=== PATIENT | male | born 1950 | race Asian ===

== ENCOUNTER → 2017-03-30 | Outpatient (CLI) | payer MEDICARE ==
[~2017-03-30] MED LIST: ACET-1757 PO; AMLO10TA2 PO; CHOL500015 PO; IBUP-1221 PO; NAPR220C2 PO
[2017-03-30 09:42] LABS: HEMATOCRIT 49.9 % (39.2-51.8); HEMOGLOBIN 17.3 g/dL (13.7-18.0); WHITE BLOOD COUNT 11.8 x10^3/uL (3.4-10)
[2017-03-30 09:53] LABS: BLOOD UREA NITROGEN 15 mg/dL (7-18)
[2017-03-30 10:18] LABS: DIFF TOTAL CELLS COUNTED 100 CELL DIFF
[2017-03-30 10:20] LABS: VERIFY COUNTS? YES
== END | disposition home or self-care (01) ==
LOC: STAR 08:35
PROVIDERS: ATTEND Neurological Surgery
DX: Z01.818 Encounter for other preprocedural examination (principal); R94.31 Abnormal electrocardiogram [ECG] [EKG]; M51.36 Other intervertebral disc degeneration, lumbar region; I44.7 Left bundle-branch block, unspecified; R79.1 Abnormal coagulation profile
CPT/HCPCS: 36415; 71020; 80048; 81003; 85025; 85610; 85730; 93005

== ENCOUNTER 2017-04-08 05:23 | Day surgery (SDC) | payer MEDICARE ==
[2017-03-30 09:05] VITALS: BP 126/82
[~2017-04-08] VITALS: Ht 172.7 cm; Wt 85.7 kg
[2017-04-08] MEDS ORDERED: LACTATED RINGERS 1,000 ML IV SCH (05:58)
[2017-04-08] MEDS ORDERED: BUPIVACAINE/PF 0.5% ONE ×2 (05:59→06:54)
[2017-04-08 06:00] VITALS: BP 126/82
[2017-04-08] MEDS ORDERED: LOSARTAN PO (06:00)
[2017-04-08] MEDS ORDERED: EPINEPHRINE 1 MG/ML, 1ML ONE (06:00)
[2017-04-08] MEDS ORDERED: LIDOCAINE 1%, 2ML SQ PRN (06:00)
[2017-04-08] MEDS ORDERED: BACITRACIN 50,000 UNIT ONE (06:00)
[2017-04-08] MEDS ORDERED: THROMBIN 5,000 UNIT VIAL TP ONE (06:00)
[2017-04-08] MEDS ORDERED: FENTANYL PF 100 MCG/2ML ONE (06:40)
[2017-04-08] MEDS ORDERED: MIDAZOLAM 1 MG/ML, 2ML ONE (06:40)
[2017-04-08] MEDS ORDERED: VANCOMYCIN 1,000 MG ONE (06:54)
[2017-04-08] MEDS ORDERED: NEOSTIGMINE 1 MG/ML, 10ML ONE (07:01)
[2017-04-08] MEDS ORDERED: ONDANSETRON 2MG/ML, 2ML ONE (07:01)
[2017-04-08] MEDS ORDERED: SUCCINYLCHOLINE 20 MG/ML, 10ML ONE (07:01)
[2017-04-08] MEDS ORDERED: ROCURONIUM 10 MG/ML ONE (07:01)
[2017-04-08] MEDS ORDERED: PROPOFOL 10 MG/ML, 20ML ONE (07:01)
[2017-04-08] MEDS ORDERED: GLYCOPYRROLATE 0.2MG/1ML, 5ML ONE (07:01)
[2017-04-08] MEDS ORDERED: DEXAMETHASONE 4 MG/ML, 1ML ONE (07:01)
[2017-04-08] MEDS ORDERED: CEFAZOLIN 1,000 MG ONE (07:01)
[2017-04-08] MEDS ORDERED: EPHEDRINE 50 MG/ML, 1ML ONE (07:09)
[2017-04-08] MEDS ORDERED: OXYcodone 5 MG/5 ML ORAL.SOL UDC PO PRN (08:00)
[2017-04-08] MEDS ORDERED: ACETAMINOPHEN 325 MG TABLET PO PRN (08:00)
[2017-04-08] MEDS ORDERED: ONDANSETRON 2MG/ML, 2ML IVPush PRN (08:00)
[2017-04-08] MEDS ORDERED: ALBUTEROL SULFATE 2.5 MG/3 ML NPPB PRN (08:00)
[2017-04-08] MEDS ORDERED: METOPROLOL 1 MG/ML, 5ML IV PRN (08:00)
[2017-04-08] MEDS ORDERED: PROMETHAZINE 25 MG/ML, 1ML IV PRN (08:00)
[2017-04-08] MEDS ORDERED: FENTANYL PF 100 MCG/2ML IV PRN (08:00)
[2017-04-08] MEDS ORDERED: MIDAZOLAM 1 MG/ML, 2ML IV PRN (08:00)
[2017-04-08] MEDS ORDERED: HYDROmorphone 1 MG/ML, 1ML IV PRN (08:00)
[2017-04-08] MEDS ORDERED: HYDROcodone/APAP 7.5-325MG/15ML UDC PO PRN (08:00)
[2017-04-08] MEDS ORDERED: MEPERIDINE/PF 25MG/0.5ML IVPush PRN (08:00)
[2017-04-08] MEDS ORDERED: EPHEDRINE 50 MG/ML, 1ML IVPush PRN (08:00)
[2017-04-08] MEDS ORDERED: hydrALAzine 20 MG/ML, 1ML IV PRN (08:00)
[2017-04-08] MEDS ORDERED: LABETALOL 5MG/ML, 20ML IV PRN (08:00)
[2017-04-08] MEDS ORDERED: DIAZEPAM 5 MG/ML, 2ML IVPush PRN (08:00)
[2017-04-08] MEDS ORDERED: HYDROmorphone 1 MG/ML, 1ML ONE (08:54)
[2017-04-08] MEDS ORDERED: ACETAMINOPHEN 650 MG/20.3 ML UDC ONE (09:52)
[2017-04-08] MEDS ORDERED: OXYcodone 5 MG/5 ML ORAL.SOL UDC ONE (09:52)
[2017-04-08] MEDS ORDERED: HYDROcodone/APAP 5/325 TABLET ONE (13:52)
[2017-04-08] MEDS ORDERED: HYDROcodone/APAP 5/325 TABLET PO ONE (14:00)
== END 2017-04-08 14:05 ==
LOC: OUT 05:23
PROVIDERS: ATTEND Neurological Surgery
DX: M48.061 Spinal stenosis, lumbar region without neurogenic claudication (principal); M51.16 Intervertebral disc disorders with radiculopathy, lumbar region; I10 Essential (primary) hypertension; E11.9 Type 2 diabetes mellitus without complications; M43.16 Spondylolisthesis, lumbar region
CPT/HCPCS: 63030; 63035; 63056; 63057; 72100; C1729; J0171; J0330; J0690; J1100; J1170; J2250; J2405; J2704; J2710; J3010; J3370; J3490; J7120

== ENCOUNTER → 2017-06-04 | Outpatient (CLI) | payer MEDICARE ==
[~2017-06-04] MED LIST changes: +LOSARTAN PO; +REGADENOSON 0.4 MG/5 ML SYRINGE ONE
== END | disposition home or self-care (01) ==
LOC: CFH 07:34
PROVIDERS: ATTEND Internal Medicine Cardiovascular Disease
DX: I25.89 Other forms of chronic ischemic heart disease (principal)
CPT/HCPCS: 78452; 93017; A9502; J2785

== ENCOUNTER 2017-07-22 09:03 | Day surgery (SDC) | payer MEDICARE ==
[2017-07-21 10:33] VITALS: BP 151/73
[2017-07-21 10:54] LABS: MEAN CORPUSCULAR HEMOGLOBIN 30.3 pg (27.5-34.5); MEAN CORPUSCULAR HGB CONC 34.1 g/dL (33.2-36.2); MEAN CORPUSCULAR VOLUME 88.7 fL (81-97); MEAN PLATELET VOLUME 9.2 fL (7.4-10.4); PLATELET COUNT 175 x10^3/uL (130-400); RED BLOOD COUNT 5.46 x10^6/uL (4.38-5.82); RED CELL DISTRIBUTION WIDTH 13.2 % (9.4-14.8)
[2017-07-21 11:01] LABS: INTERNATIONAL NORMALIZED RATIO 1.05 (0.93-1.1); PROTHROMBIN TIME 10.9 Seconds (9.6-11.5)
[2017-07-21 11:05] LABS: ANION GAP 7 mmol/L (5-15); CALCIUM 8.9 mg/dL (8.5-10.1); CHLORIDE 108 mmol/L (98-107); CREATININE 1.05 mg/dL (0.7-1.3)
[2017-07-21 11:16] LABS: MD YES
[2017-07-21 11:20] LABS: BASOS#(MANUAL) 0.12 x10^3/uL (0-0.1); BASOS% (MANUAL) 1 % (0-1); LYMPH#(MANUAL) 4.39 x10^3/uL (1-3.4); LYMPHS% (MANUAL) 36 % (22-44); MONOS#(MANUAL) 0.49 x10^3/uL (0.3-2.7); MONOS% (MANUAL) 4 % (2-9); REACTIVE LYMPHS # (MANUAL) 0.24 x10^3/uL (0-0); REACTIVE LYMPHS % (MANUAL) 2 % (0-0); SEG#(MANUAL) 6.95 x10^3/uL (1.8-6.8); SEGS% (MANUAL) 57 % (42-75); SMUDGE CELLS 1+
[2017-07-21 11:21] LABS: <PLATELET ESTIMATE> ADEQUATE; <PLT MORPHOLOGY> NORMAL PLT MORPH; <RBC MORPHOLOGY> NORMAL
[~2017-07-22] VITALS: Ht 172.7 cm; Wt 84.1 kg
[~2017-07-22 09:03] MED LIST changes: -REGADENOSON 0.4 MG/5 ML SYRINGE ONE
[2017-07-22] MEDS ORDERED: SODIUM CHLORIDE 0.9% 1,000 ML IV ONE (09:12)
[2017-07-22] MEDS ORDERED: DIPHENHYDRAMINE 50 MG/ML, 1ML IVPush PRN (09:30)
[2017-07-22] MEDS ORDERED: LIDOCAINE 2%, 20ML ONE (09:33)
[2017-07-22] MEDS ORDERED: MIDAZOLAM 1 MG/ML, 2ML ONE ×2 (09:33)
[2017-07-22] MEDS ORDERED: FENTANYL PF 100 MCG/2ML ONE (09:33)
[2017-07-22] MEDS ORDERED: HEPARIN 1,000 UNITS/ML, 10ML ONE (09:34)
[2017-07-22] MEDS ORDERED: VERAPAMIL 2.5 MG/ML, 2ML ONE (09:34)
[2017-07-22] MEDS ORDERED: HYDR-3237 PO (09:42)
[2017-07-22] MEDS ORDERED: ASPI-496 PO (09:42)
[2017-07-22] MEDS ORDERED: MULT-252 PO (09:42)
[2017-07-22] MEDS ORDERED: OMEG1CAP23 PO (09:42)
[2017-07-22] MEDS ORDERED: ASCO10004 PO (09:42)
[2017-07-22] MEDS ORDERED: LOSA1TAB19 PO (09:42)
[2017-07-22] MEDS ORDERED: METO25TA91 PO (09:42)
[2017-07-22] MEDS ORDERED: DIPH25CA61 PO (09:42)
[2017-07-22] MEDS ORDERED: SODIUM CHLORIDE 0.9% 1,000 ML IV SCH (11:40)
== END 2017-07-22 15:06 ==
LOC: CACL 09:03
PROVIDERS: ATTEND Internal Medicine Cardiovascular Disease
DX: I42.9 Cardiomyopathy, unspecified (principal); I34.0 Nonrheumatic mitral (valve) insufficiency; I10 Essential (primary) hypertension
CPT/HCPCS: 36415; 80048; 85025; 85610; 93458; 99156; 99157; C1894; J2250; J3010; J3490; Q9967; J1644

== ENCOUNTER 2017-10-24 20:00 | Emergency (ER) | payer MEDICARE ==
[~2017-10-24] VITALS: Ht 175.3 cm; Wt 85.0 kg
[~2017-10-24 20:00] MED LIST changes: +ASCO10004 PO; +ASPI-496 PO; +DIPH25CA61 PO; +HYDR-3237 PO; +LOSA1TAB19 PO; +METO25TA91 PO; +MULT-252 PO; +OMEG1CAP23 PO
[2017-10-24 22:18] VITALS: BP 127/81
[2017-10-24] MEDS ORDERED: OXYcodone/APAP 5/325MG TABLET ONE (22:27)
[2017-10-24] MEDS ORDERED: OXYcodone/APAP 5/325MG TABLET PO ONE (22:30)
[2017-10-24] MEDS ORDERED: METOPROLOL (22:56)
[2017-10-24] MEDS ORDERED: LOSARTAN (22:56)
[2017-10-24] MEDS ORDERED: PROPARACAINE OPHTH 0.5%, 15ML ONE (23:13)
[2017-10-24] MEDS ORDERED: BACITRACIN ZINC OINT 500U/GM, 0.9 GM ONE (23:27)
== END 2017-10-24 23:35 | disposition home or self-care (01) ==
LOC: ED 20:55
DX: S02.32XA Fracture of orbital floor, left side, initial encounter for closed fracture (principal); I10 Essential (primary) hypertension; H05.20 Unspecified exophthalmos; W01.0XXA Fall on same level from slipping, tripping and stumbling without subsequent striking against object, initial encounter; Y93.89 Activity, other specified; Y92.89 Other specified places as the place of occurrence of the external cause; Y99.8 Other external cause status
CPT/HCPCS: 70450; 70486; 72125; 99284

== ENCOUNTER → 2017-10-28 | Outpatient (CLI) | payer MEDICARE ==
[~2017-10-28] MED LIST changes: +LOSARTAN; +METOPROLOL
== END | disposition home or self-care (01) ==
LOC: RAD 09:08
PROVIDERS: ATTEND Orthopaedic Surgery
DX: S93.492A Sprain of other ligament of left ankle, initial encounter (principal); M25.472 Effusion, left ankle; X58.XXXA Exposure to other specified factors, initial encounter; Y93.89 Activity, other specified; Y92.89 Other specified places as the place of occurrence of the external cause; Y99.8 Other external cause status

== ENCOUNTER → 2018-01-19 | Outpatient (CLI) | payer MEDICARE | END | disposition home or self-care (01) | LOC: CVU 09:34 | PROVIDERS: ATTEND Internal Medicine Cardiovascular Disease | DX: I11.9 Hypertensive heart disease without heart failure (principal); I08.2 Rheumatic disorders of both aortic and tricuspid valves; I42.9 Cardiomyopathy, unspecified; I44.7 Left bundle-branch block, unspecified; I25.10 Atherosclerotic heart disease of native coronary artery without angina pectoris | CPT/HCPCS: 0399T; 93306 ==

== ENCOUNTER 2018-11-25 07:32 | Outpatient (CLI) | payer MEDICARE ==
[~2018-11-25 07:32] MED LIST changes: -AMLO10TA2 PO; +AMLO10TA8 PO
== END 2018-11-25 23:59 | disposition home or self-care (01) ==
LOC: CFH 07:32
PROVIDERS: ATTEND Internal Medicine Cardiovascular Disease
DX: I34.0 Nonrheumatic mitral (valve) insufficiency (principal); I11.9 Hypertensive heart disease without heart failure; Z87.891 Personal history of nicotine dependence
CPT/HCPCS: 93306

== ENCOUNTER 2021-03-01 09:27 | Outpatient (CLI) | payer MEDICARE ==
[~2021-03-01 09:27] MED LIST changes: -ACET-1757 PO; +ACET-2065 PO; +AMLO-211 PO; -AMLO10TA8 PO; +ASCO100018 PO; -ASCO10004 PO
[2021-03-01 09:46] LABS: MEAN CORPUSCULAR HEMOGLOBIN 31.3 pg (27.5-34.5); MEAN CORPUSCULAR HGB CONC 34.6 g/dL (33.2-36.2); MEAN PLATELET VOLUME 9.7 fL (7.4-10.4); PLATELET COUNT 127 x10^3/uL (130-400); RED BLOOD COUNT 4.94 x10^6/uL (4.38-5.82); RED CELL DISTRIBUTION WIDTH 13.2 % (9.4-14.8)
[2021-03-01 09:54] LABS: ALANINE AMINOTRANSFERASE 31 U/L (12-78); ANION GAP 8 mmol/L (5-15); CALCIUM 8.8 mg/dL (8.5-10.1); CHLORIDE 112 mmol/L (98-107); CREATININE 1.22 mg/dL (0.7-1.3)
[2021-03-01 09:56] LABS: ALKALINE PHOSPHATASE 51 U/L (45-117); BILIRUBIN,TOTAL 0.8 mg/dL (0.2-1.0); TOTAL PROTEIN 7.1 g/dL (6.4-8.2)
[2021-03-01 10:23] LABS: BASOS#(MANUAL) 0.15 x10^3/uL (0-0.1); BASOS% (MANUAL) 1 % (0-1); EOS#(MANUAL) 0.15 x10^3/uL (0.0-0.4); EOS% (MANUAL) 1 % (1-7); LYMPH#(MANUAL) 10.12 x10^3/uL (1-3.4); LYMPHS% (MANUAL) 67 % (22-44); MONOS#(MANUAL) 0.45 x10^3/uL (0.3-2.7); MONOS% (MANUAL) 3 % (2-9); REACTIVE LYMPHS # (MANUAL) 0.15 x10^3/uL (0-0); REACTIVE LYMPHS % (MANUAL) 1 % (0-0); SEG#(MANUAL) 4.08 x10^3/uL (1.8-6.8); SMUDGE CELLS 1+
[2021-03-01 10:24] LABS: <PLATELET ESTIMATE> DECREASED; <PLT MORPHOLOGY> NORMAL PLT MORPH; <RBC MORPHOLOGY> NORMAL; SEGS% (MANUAL) 27 % (42-75)
== END 2021-03-01 23:59 | disposition home or self-care (01) ==
LOC: LAB 09:27
PROVIDERS: ATTEND Internal Medicine Hematology & Oncology
DX: C91.10 Chronic lymphocytic leukemia of B-cell type not having achieved remission (principal)
CPT/HCPCS: 36415; 80053; 83615; 85025